=== PATIENT | male | born 1940 | race Caucasian/White ===

== ENCOUNTER 2016-10-01 07:17 | Day surgery (SDC) | payer MEDICARE, MEDICAID ==
[2016-10-01 07:52] VITALS: BMI 27.2
[2016-10-01 08:17] VITALS: RESP 16; TEMP 97.8; O2SAT 98
[2016-10-01] MEDS ORDERED: Lactated Ringer's 500 ML IV ONE (09:12)
[2016-10-01] MEDS ORDERED: Propofol 10 mg/ml Inj (20 ML) ONE ×3 (09:17→09:29)
[2016-10-01 10:19] VITALS: BP 118/73; PULSE 69
== END 2016-10-01 10:36 | disposition home or self-care (01) ==
LOC: C.ENDO 07:17
PROVIDERS: ATTEND Internal Medicine Gastroenterology
DX: Z12.11 Encounter for screening for malignant neoplasm of colon (principal); K57.30 Diverticulosis of large intestine without perforation or abscess without bleeding; K64.8 Other hemorrhoids
CPT/HCPCS: 45378; 88305; J2704; J7120

== ENCOUNTER 2018-04-09 10:43 | Inpatient (IN) | payer MEDICARE, MEDICAID ==
[2018-04-09 10:44] VITALS: BMI 27.2
[2018-04-09] MEDS ORDERED: Iohexol 240 (50 ml) PO STA (10:54)
[2018-04-09] MEDS ORDERED: Sodium Chloride 0.9% 1,000 ML IV ONE (10:54)
--- NOTE | 2018-04-09 10:54 | C.PDOC ---
History Of Present Illness 77 years old male with PMHx of michelle and perium Hernia bought to ED via Trans for complaints of worsening LUQ and LLQ abdominal pain that began 2 weeks ago. Patient describes pain is currently intermittent and constant and got more i ntense today. Patient also reports associated symptoms of epigastric tenderness and new onset nausea today. Patient also states Hx of constipation, and he only takes "Tea" but no improvement. Patient currently states pain is more intense than usual. Denies any other physical complaints. VIA TRANS WORSENING ABD PAIN X 2 WEEKS. LUQ/LLQ PAIN, INTERMIT NOW CONSTANT AND MORE INTENSE TODAY. +EPIG TEND. NEW ONSET NAUSEA TODAY. PS HO CONSTIPATION, ONLY TAKES "TEA" BUT NO IMPROVE. CURRENT PAIN MORE INTENSE THAN USUAL. PSH MICHELLE, PERIUM HERNIA. NO OTHER ASSOC SX EXAM MILD DIST NONTOXIC ABD +LUQ/LQ TEND MILD SOFT NONDIST NO RG REMAINDER NEG Time Seen by Provider: 04/09/18 10:53 Chief Complaint (Nursing): Abdominal Pain History Per: Patient History/Exam Limitations: no limitations Onset/Duration Of Symptoms: Hrs, Intermittent Episodes, Sudden Onset Current Symptoms Are (Timing): Still Present Location Of Pain/Discomfort: LUQ, LLQ Radiation Of Pain To:: None Associated Symptoms: Nausea. denies: Fever, Chills, Vomiting, Diarrhea Exacerbating Factors: None Alleviating Factors: None Last Bowel Movement: Today Past Medical History Reviewed: Historical Data, Nursing Documentation, Vital Signs Vital Signs: Last Vital Signs Temp 98 F 04/09/18 10:47 Pulse 78 04/09/18 10:47 Resp 18 04/09/18 10:47 BP 150/62 04/09/18 10:47 Pulse Ox 98 04/09/18 10:47 - Medical History PMH: Asthma, CAD, HTN, Hypercholesterolemia, Hypothyroidism Denies: Chronic Kidney Disease Surgical History: Cholecystectomy, Coronary Stent Family History: States: No Known Family Hx - Social History Hx Tobacco Use: No Hx Alcohol Use: No Hx Substance Use: No - Immunization History Hx Tetanus Toxoid Vaccination: No Hx Influenza Vaccination: No Hx Pneumococcal Vaccination: No Review Of Systems Constitutional: Negative for: Fever, Chills Gastrointestinal: Positive for: Nausea, Abdominal Pain (LLQ, LUQ). Negative for: Vomiting, Diarrhea Skin: Negative for: Rash Neurological: Negative for: Weakness, Numbness Physical Exam - Physical Exam Appears: Non-toxic, No Acute Distress Skin: Normal Color, Warm, Dry, No Rash Head: Atraumatic Eye(s): bilateral: Normal Inspection, PERRL, EOMI Oral Mucosa: Moist Chest: Symmetrical, No Tenderness Cardiovascular: Rhythm Regular, No Murmur Respiratory: Normal Breath Sounds, No Decreased Breath Sounds, No Rales, No Rhonchi, No Wheezing Gastrointestinal/Abdominal: Soft, Tenderness (Mild LUQ/LQ ), No Distention, No Guarding, No Rebound Extremity: Normal ROM Extremity: Bilateral: Normal Color And Temperature, Normal ROM Pulses: Left Radial: Normal, Right Radial: Normal Neurological/Psych: Oriented x3, Normal Speech Gait: Steady ED Course And Treatment - Laboratory Results Result Diagrams: 04/09/18 10:54 04/09/18 11:21 ECG: Interpreted By Me, Viewed By Fl ECG Rhythm: Sinus Bradycardia (53 bpm) O2 Sat by Pulse Oximetry: 98 (RA) Pulse Ox Interpretation: Normal - Radiology CXR: Interpreted by Fl, Viewed By Fl CXR Interpretation: Yes: No Acute Disease - Other Rad CXR X-Ray: Viewed By Fl, Read By Radiologist Interpretation: Date of service: 04/09/2018. PROCEDURE: CHEST RADIOGRAPH, 1 VIEW. HISTORY: abd pain. COMPARISON: None available. FINDINGS: LUNGS: Erik ar. PLEURA: No pneumothorax or pleural fluid seen. CARDIOVASCULAR: Normal. OSSEOUS STRUCTURES: No significant abnormalities. VISUALIZED UPPER ABDOMEN: Normal. OTHER FINDINGS: None. IMPRESSION: No acute cardiopulmonary disease appreciated. - CT Scan/US Abdomen/Pelvis CT Other Rad Studies (CT/US): Read By Radiologist, Radiology Report Reviewed CT/US Interpretation: Date of service: 04/09/2018. PROCEDURE: CT Abdomen and Pelvis with contrast. HISTORY: abd pain RO OBSTRUCTION. COMPARISON: Abdomen ultrasound 02/21/2013. TECHNIQUE: Following oral and intravenous contrast administration, a CT examination of the abdomen and pelvis performed from the domes of the diaphragms to the symphysis pubis with reformatted datasets provided not only axial but also sagittal and coronal series. Coronal and sa gittal reformats were generated. contrast dose: Visipaque 320, 100. Radiation dose: Total exam DLP = 813.65 mGy-cm. This CT exam was performed using one or more of the following dose reduction techniques: Automated exposure control, adjustment of the mA and/or kV according to patient size, and/or use of iterative reconstruction technique. FINDINGS: LOWER THORAX: Bilateral basilar dependent atelectasis identified. Small hiatal hernia identified. LIVER: Diffusely diminished attenuation of the liver is appreciate compatible with hepatic steatosis. No discrete mass or intrahepatic biliary dilatation appreciable. Liver is upper limits normal size. GALLBLADDER AND BILE DUCTS: Prior cholecystectomy. PANCREAS: Although the pancreas is not enlarged, there is significant peripancreatic reactive change appreciable, compatible with pancreatitis. No pseudocyst or definite pattern to suggest pancreatic necrosis is identified at this time. Proximal CBD is dilated to 8 mm without radiodense choledocholithiasis appreciated. This could be a function of post cholecystectomy affect. Clinically correlate further. No gross ampullary mass identified at this time. SPLEEN: Unremarkable. ADRENALS: Unremarkable. No mass. KIDNEYS AND URETERS: No obstructive uropathy or radiodense urolithiasis bilaterally. 1.2 cm simple cyst exophytic off the lower pole left kidney medially with 2 additional lucencies at the left renal cortex too small to characterize. VASCULATURE: Nonaneurysmal abdominal aortic calcific atherosclerotic changes are identified. BOWEL: Unremarkable. No obstruction. No gross mural thickening. APPENDIX: Normal appendix. PERITONEUM: Unremarkable. No free fluid. No free air. LYMPH NODES: Unremarkable. No enlarged lymph nodes. BLADDER: Unremarkable. REPRODUCTIVE: Mildly enlarged prostate gland identified. BONES: No acute fracture. OTHER FINDINGS: None. IMPRESSION: 1. Findings most compatible with acute subacute pancreatitis. Prior cholecystectomy is appreciated with likely related dilatation of the proximal to mid common bile duct up to 8 mm. No radiodense choledocholithiasis. Consider follow-up MRCP as clinically warranted as a precaution to evaluate common bile duct diameter. 2. Hepatic steatosis. No intrahepatic biliary dil atation. 3. Small left renal cyst identified. 4. Enlarged prostate gland. Progress - Re-Evaluation Re-evaluation Note: 04/09/18 13:43 SP MORPHINE X 2, VSS APPEARS IMPROVED D/W DR HANKINS C/F PMD WILL ADMIT - Data Reviewed Data Reviewed: Lab, Diagnostic imaging, EKG, Old records Medical Decision Making Medical Decision Making: Plan: * Morphine * IV fluids * Zofran * Omnipaque * BG * CT Abdomen/Pelvis * EKG * CXR * Urinalysis Disposition Counseled Patient/Family Regarding: Studies Performed, Diagnosis - Disposition Disposition: HOSPITALIZED Disposition Time: 13:44 Condition: SERIOUS - POA Present On Arrival: None, Poor Glycemic Control - Clinical Impression Clinical Impression: Pancreatitis - Scribe Statement The provider has reviewed the documentation as recorded by the Elisibnichole Iqbal All medical record entries made by the Elisibnichole were at my direction and personally dictated by me. I have reviewed the chart and agree that the record accurately reflects my personal performance of the history, physical exam, medical decision making, and the department course for this patient. I have also personally directed, reviewed, and agree with the discharge instructions and disposition.
[2018-04-09] MEDS ORDERED: Iohexol 240 (50 ml) ONE (11:04)
[2018-04-09 11:16] LABS: BASO % 0.2 % (0.0-2.0); EOS # 0.2 K/uL (0.0-0.7); EOS % 1.9 % (0.0-4.0); HEMOGLOBIN 14.8 g/dL (12.0-18.0); LYMPH # 1.9 K/uL (1.0-4.3); LYMPH % 16.5 % (20.0-40.0); MEAN CELL VOLUME 87.4 fL (80.0-94.0); MEAN CORPUSCULAR HEMOGLOBIN 29.9 pg (27.0-31.0); MEAN CORPUSCULAR HGB CONC 34.2 g/dL (33.0-37.0); MEAN PLATELET VOLUME 8.4 fL (7.2-11.7); MONO % 8.3 % (0.0-10.0); NEUT # 8.5 K/uL (1.8-7.0); NEUT % 73.1 % (50.0-75.0); NRBC % 0.1 % (0.0-2.0); RBC 4.96 Mil/uL (4.40-5.90); RED CELL DISTRIBUTION WIDTH 14.3 % (11.5-14.5); WHITE BLOOD COUNT 11.6 K/uL (4.8-10.8)
[2018-04-09 11:31] LABS: VENOUS BLOOD GAS BASE EXCESS 0.9 mmol/L (0.0-2.0); VENOUS BLOOD GAS PCO2 51 mmHg (40-60); VENOUS BLOOD GAS PO2 19 mm/Hg (30-55); VENOUS BLOOD PH 7.34 (7.32-7.43)
[2018-04-09 11:34] LABS: ALB/GLOB RATIO 1.3 (1.0-2.1); ALBUMIN 4.5 g/dL (3.5-5.0); ALT/SGPT 35 U/L (21-72); AST/SGOT 26 U/L (17-59); BLOOD UREA NITROGEN 27 mg/dL (9-20); CALCIUM 10.2 mg/dl (8.6-10.4); GFR NON-AFRICAN AMERICAN 59
[2018-04-09 11:49] LABS: LIPASE 3901 U/L (23-300)
[2018-04-09] MEDS ORDERED: Iodixanol 320 MG/ML 100 ML BOTTLE IV ONE (12:37)
[2018-04-09 13:01] LABS: URINE BILIRUBIN NEGATIVE (NEGATIVE); URINE BLOOD NEGATIVE (NEGATIVE); URINE CLARITY Clear (Clear); URINE COLOR Yellow (YELLOW); URINE GLUCOSE (UA) NORMAL (Normal); URINE LEUKOCYTE ESTERASE NEG Leu/uL (Negative); URINE PROTEIN 1+ mg/dL (NEGATIVE); URINE UROBILINOGEN NORMAL mg/dL (0.2-1.0)
[2018-04-09] MEDS ORDERED: Morphine 4 MG/ML VIAL ONE (13:14)
--- NOTE | 2018-04-09 13:18 | CT ---
Date of service: 04/09/2018 PROCEDURE: CT Abdomen and Pelvis with contrast HISTORY: abd pain RO OBSTRUCTION COMPARISON: Abdomen ultrasound 02/21/2013. TECHNIQUE: Following oral and intravenous contrast administration, a CT examination of the abdomen and pelvis performed from the domes of the diaphragms to the symphysis pubis with reformatted datasets provided not only axial but also sagittal and coronal series. Coronal and sagittal reformats were generated. contrast dose: Visipaque 320, 100 Radiation dose: Total exam DLP = 813.65 mGy-cm. This CT exam was performed using one or more of the following dose reduction techniques: Automated exposure control, adjustment of the mA and/or kV according to patient size, and/or use of iterative reconstruction technique. FINDINGS: LOWER THORAX: Bilateral basilar dependent atelectasis identified. Small hiatal hernia identified. LIVER: Diffusely diminished attenuation of the liver is appreciate compatible with hepatic steatosis. No discrete mass or intrahepatic biliary dilatation appreciable. Liver is upper limits normal size. GALLBLADDER AND BILE DUCTS: Prior cholecystectomy. PANCREAS: Although the pancreas is not enlarged, there is significant peripancreatic reactive change appreciable, compatible with pancreatitis. No pseudocyst or definite pattern to suggest pancreatic necrosis is identified at this time. Proximal CBD is dilated to 8 mm without radiodense choledocholithiasis appreciated. This could be a function of post cholecystectomy affect. Clinically correlate further. No gross ampullary mass identified at this time. SPLEEN: Unremarkable. ADRENALS: Unremarkable. No mass. KIDNEYS AND URETERS: No obstructive uropathy or radiodense urolithiasis bilaterally. 1.2 cm simple cyst exophytic off the lower pole left kidney medially with 2 additional lucencies at the left renal cortex too small to characterize. VASCULATURE: Nonaneurysmal abdominal aortic calcific atherosclerotic changes are identified. BOWEL: Unremarkable. No obstruction. No gross mural thickening. APPENDIX: Normal appendix. PERITONEUM: Unremarkable. No free fluid. No free air. LYMPH NODES: Unremarkable. No enlarged lymph nodes. BLADDER: Unremarkable. REPRODUCTIVE: Mildly enlarged prostate gland identified. BONES: No acute fracture. OTHER FINDINGS: None. IMPRESSION: 1. Findings most compatible with acute subacute pancreatitis. Prior cholecystectomy is appreciated with likely related dilatation of the proximal to mid common bile duct up to 8 mm. No radiodense choledocholithiasis. Consider follow-up MRCP as clinically warranted as a precaution to evaluate common bile duct diameter. 2. Hepatic steatosis. No intrahepatic biliary dilatation. 3. Small left renal cyst identified. 4. Enlarged prostate gland.
--- NOTE | 2018-04-09 15:38 | CP.PCM.HP ---
<Jazlyn Truong - Last Filed: 04/09/18 15:53> History of Present Illness - History of Present Illness History of Present Illness: Admission H&P HPI: 77 y/o male with PMHx of CAD s/p 3 stents (last 2003), HTN, HLD presents to the ED with epigastric, nonradiating abdominal pain x 15 days. Patient states it was at its worst starting today so he went to the ED. He started to feel nauseous today and vomited his breakfast once in the ED. For the last 15 days, patient has been trying to drink tea to relieve his pain without relief. He has not tried any medications for pain relief. The pain currently is 5/10 while resting supine in bed but can be more worse when he is ambulating. Patient endor ses appetite loss but denies weight loss. Patient also denies chest pain, shortness of breath, fever, chills, sweats, diarrhea. Patient has also been having constipation and last BM was hard stool this morning. Of note, patient's PCM is Dr. Jose Antonio Gibson. The last time he saw him was last summer. He said the appointment went well. He had a screening colonoscopy done a year ago. Patient states there were no significant findings. ROS: as per HPI PMHx: CAD - 3 stents last one in 2003 HTN Hypothyroid Hyperlipidemia herniated lumbar discs PSHx: CAD with 3 stents last one 2003 cholecystectomy in [facility] 2012 Procedures: Upper endoscopy and colonoscopy 2017 - EMR records says he has gastritis and diverticulosis. FHx: Denies FHx of CA, CVA, [place] SocHx: Denies tobacco, EtOH and drug use Home Meds: levothyroxine 100 mcg metoprolol succinate 25 mg plavix 75 mg fenofibrate 160 mg amlodipine 10 mg losartan/HCTZ 100/25 tramadol 50mg a pill for acid reflux - does not recall the name; left it at home Allergies: NKDA Present on Admission - Present on Admission Any Indicators Present on Admission: Yes Review of Systems - Review of Systems Review of Systems: as per HPI Past Patient History - Past Medical History & Family History Past Medical History?: Yes - Past Social History Smoking Status: Never Smoked - CARDIAC Hx Hypercholesterolemia: Yes Hx Hypertension: Yes - PULMONARY Hx Asthma: Yes - NEUROLOGICAL Hx Neurological Disorder: No - HEENT Hx HEENT Problems: No - RENAL Hx Chronic Kidney Disease: No - ENDOCRINE/METABOLIC Hx Hypothyroidism: Yes - HEMATOLOGICAL/ONCOLOGICAL Hx Blood Disorders: No - INTEGUMENTARY Hx Dermatological Problems: No - MUSCULOSKELETAL/RHEUMATOLOGICAL Hx Musculoskeletal Disorders: Yes Hx Back Pain: Yes Hx Osteoarthritis: Yes - GASTROINTESTINAL Hx Gastrointestinal Disorders: No - GENITOURINARY/GYNECOLOGICAL Hx Genitourinary Disorders: No - PSYCHIATRIC Hx Substance Use: No - SURGICAL HISTORY Hx Cholecystectomy: Yes Hx Coronary Stent: Yes - ANESTHESIA Hx Anesthesia: Yes Hx Anesthesia Reactions: No Hx Malignant Hyperthermia: No Meds Allergies/Adverse Reactions: Allergies Allergy/AdvReac Type Severity Reaction Status Date / Time No Known Allergies Allergy Verified 05/30/14 10:08 Physical Exam - Constitutional Appears: Well, No Acute Distress - Head Exam Head Exam: ATRAUMATIC, NORMAL INSPECTION - Eye Exam Eye Exam: EOMI, Normal appearance - ENT Exam ENT Exam: Mucous Membranes Dry - Neck Exam Neck exam: Positive for: Normal Inspection. Negative for: Lymphadenopathy - Respiratory Exam Respiratory Exam: Clear to Auscultation Bilateral, NORMAL BREATHING PATTERN - Cardiovascular Exam Cardiovascular Exam: REGULAR RHYTHM - GI/Abdominal Exam GI & Abdominal Exam: Soft Additional comments: epigastric tenderness to palpation - Extremities Exam Extremities exam: Positive for: normal inspection - Neurological Exam Neurological exam: Alert, Oriented x3 - Psychiatric Exam Psychiatric exam: Normal Affect, Normal Mood - Skin Skin Exam: Dry, Intact, Normal Color, Warm - Additional Findings Additional findings: strong peripheral pulses Results - Vital Signs Recent Vital Signs: Last Vital Signs Temp 97.9 F 04/09/18 13:48 Pulse 57 L 04/09/18 13:48 Resp 16 04/09/18 13:48 BP 149/74 04/09/18 13:48 Pulse Ox 98 04/09/18 14:05 - Labs Result Diagrams: 04/09/18 10:54 04/09/18 11:21 Labs: Laboratory Results - last 24 hr 04/09/18 04/09/18 04/09/18 10:54 11:20 11:21 WBC 11.6 H D RBC 4.96 Hgb 14.8 D Hct 43.4 MCV 87.4 MCH 29.9 MCHC 34.2 RDW 14.3 Plt Count 347 D MPV 8.4 Neut % (Auto) 73.1 Lymph % (Auto) 16.5 L [place] % (Auto) 8.3 Eos % (Auto) 1.9 Baso % (Auto) 0.2 Neut # (Auto) 8.5 H Lymph # (Auto) 1.9 [place] # (Auto) 1.0 H Eos # (Auto) 0.2 Baso # (Auto) 0.0 pO2 19 L VBG pH 7.34 VBG pCO2 51 VBG HCO3 23.7 VBG Total CO2 29.1 H VBG O2 Sat (Calc) 28.7 L VBG Base Excess 0.9 VBG Potassium 3.3 L Sodium 138.0 143 Chloride 106.0 101 Glucose 152 H Lactate 1.6 Potassium 3.5 L Carbon Dioxide 28 Anion Gap 17 BUN 27 H Creatinine 1.2 Est GFR ( Amer) > 60 Est GFR (Non-Af Amer) 59 Random Glucose 159 H Calcium 10.2 Total Bilirubin 0.9 AST 26 ALT 35 Alkaline Phosphatase 39 Total Protein 8.1 Albumin 4.5 Globulin 3.6 Albumin/Globulin Ratio 1.3 Lipase 3901 H Venous Blood Potassium 3.3 L Urine Color Urine Clarity Urine pH Ur Specific [place] Urine Protein Urine Glucose (UA) Urine Ketones Urine Blood Urine Nitrate Urine Bilirubin Urine Urobilinogen Ur Leukocyte Esterase Urine WBC (Auto) Urine RBC (Auto) Hyaline Casts 04/09/18 12:40 WBC RBC Hgb Hct MCV MCH MCHC RDW Plt Count MPV Neut % (Auto) Lymph % (Auto) [place] % (Auto) Eos % (Auto) Baso % (Auto) Neut # (Auto) Lymph # (Auto) [place] # (Auto) Eos # (Auto) Baso # (Auto) pO2 VBG pH VBG pCO2 VBG HCO3 VBG Total CO2 VBG O2 Sat (Calc) VBG Base Excess VBG Potassium Sodium Chloride Glucose Lactate Potassium Carbon Dioxide Anion Gap BUN Creatinine Est GFR ( Amer) Est GFR (Non-Af Amer) Random Glucose Calcium Total Bilirubin AST ALT Alkaline Phosphatase Total Protein Albumin Globulin Albumin/Globulin Ratio Lipase Venous Blood Potassium Urine Color Yellow Urine Clarity Clear Urine pH 6.0 Ur Specific [place] 1.013 Urine Protein 1+ H Urine Glucose (UA) Normal Urine Ketones Negative Urine Blood Negative Urine Nitrate Negative Urine Bilirubin Negative Urine Urobilinogen Normal Ur Leukocyte Esterase Neg Urine WBC (Auto) < 1 Urine RBC (Auto) < 1 Hyaline Casts 3-5 H Assessment & Plan - Assessment and Plan (Free Text) Assessment: 77 y/o male with PMHx of CAD s/p 3 stents (last 2003), HTN, HLD presents to the ED with epigastric, nonradiating abdominal pain x 15 days. In the ED found to have elevated lipase 3901. Admitted for acute pancreatitis. Acute pancreatitis -Patient without a gallbladder and denies EtOH. Causes could be obstruction, less likely infectious (afebrile, leukocytosis slight - likely reactive). CT s can suggests consideration of MRCP showing bile duct dilation and subacute pancreatitis. -consult GI (Dr. Doyle - performed his upper endo and colonoscopy) for further recs and possible procedure -IVF NS 0.9% with K at 150 mL/h -morphine PRN -zofran PRN -NPO -lipid panel and A1c -repeat lipase in 2 days -CEA to r/o malignancy CAD s/p 3 stents -last stent 2003 -hold plavix as possible need for GI to bx in procedure HTN -hold HTN home meds -monitor bp and resume meds as needed Hypothyroid -continue with home synthroid 100 mcg DVT ppx: lovenox 40 mg sq GI ppx: protonix 40 mg IV Code: FULL case discussed with Dr. Feliciano Truong, DO PGY-1 <Caren Wiggins - Last Filed: 04/09/18 16:41> Results - Vital Signs Recent Vital Signs: Last Vital Signs Temp 97.9 F 04/09/18 13:48 Pulse 57 L 04/09/18 13:48 Resp 16 04/09/18 13:48 BP 149/74 04/09/18 13:48 Pulse Ox 98 04/09/18 14:05 - Labs Result Diagrams: 04/09/18 10:54 04/09/18 11:21 Labs: Laboratory Results - last 24 hr 04/09/18 04/09/18 04/09/18 10:54 11:20 11:21 WBC 11.6 H D RBC 4.96 Hgb 14.8 D Hct 43.4 MCV 87.4 MCH 29.9 MCHC 34.2 RDW 14.3 Plt Count 347 D MPV 8.4 Neut % (Auto) 73.1 Lymph % (Auto) 16.5 L [place] % (Auto) 8.3 Eos % (Auto) 1.9 Baso % (Auto) 0.2 Neut # (Auto) 8.5 H Lymph # (Auto) 1.9 [place] # (Auto) 1.0 H Eos # (Auto) 0.2 Baso # (Auto) 0.0 pO2 19 L VBG pH 7.34 VBG pCO2 51 VBG HCO3 23.7 VBG Total CO2 29.1 H VBG O2 Sat (Calc) 28.7 L VBG Base Excess 0.9 VBG Potassium 3.3 L Sodium 138.0 143 Chloride 106.0 101 Glucose 152 H Lactate 1.6 Potassium 3.5 L Carbon Dioxide 28 Anion Gap 17 BUN 27 H Creatinine 1.2 Est GFR ( Amer) > 60 Est GFR (Non-Af Amer) 59 Random Glucose 159 H Calcium 10.2 Total Bilirubin 0.9 AST 26 ALT 35 Alkaline Phosphatase 39 Total Protein 8.1 Albumin 4.5 Globulin 3.6 Albumin/Globulin Ratio 1.3 Lipase 3901 H Venous Blood Potassium 3.3 L Urine Color Urine Clarity Urine pH Ur Specific [place] Urine Protein Urine Glucose (UA) Urine Ketones Urine Blood Urine Nitrate Urine Bilirubin Urine Urobilinogen Ur Leukocyte Esterase Urine WBC (Auto) Urine RBC (Auto) Hyaline Casts 04/09/18 12:40 WBC RBC Hgb Hct MCV MCH MCHC RDW Plt Count MPV Neut % (Auto) Lymph % (Auto) [place] % (Auto) Eos % (Auto) Baso % (Auto) Neut # (Auto) Lymph # (Auto) [place] # (Auto) Eos # (Auto) Baso # (Auto) pO2 VBG pH VBG pCO2 VBG HCO3 VBG Total CO2 VBG O2 Sat (Calc) VBG Base Excess VBG Potassium Sodium Chloride Glucose Lactate Potassium Carbon Dioxide Anion Gap BUN Creatinine Est GFR ( Amer) Est GFR (Non-Af Amer) Random Glucose Calcium Total Bilirubin AST ALT Alkaline Phosphatase Total Protein Albumin Globulin Albumin/Globulin Ratio Lipase Venous Blood Potassium Urine Color Yellow Urine Clarity Clear Urine pH 6.0 Ur Specific [place] 1.013 Urine Protein 1+ H Urine Glucose (UA) Normal Urine Ketones Negative Urine Blood Negative Urine Nitrate Negative Urine Bilirubin Negative Urine Urobilinogen Normal Ur Leukocyte Esterase Neg Urine WBC (Auto) < 1 Urine RBC (Auto) < 1 Hyaline Casts 3-5 H Attending/Attestation - Attestation I have personally seen and examined this patient.: Yes I have fully participated in the care of the patient.: Yes I have reviewed all pertinent clinical information: Yes Notes (Text): Seen and examined by me . Patient is in severe epigastric pain CT shows acute pancreatititis and cano,has common bile duct dilatations,he has high lipase History of cholecystectomy. CAD and Stent in 2003 Assessment and the plan discussed with the resident. I agree with the documentation d/w and daughter in law at bedside
--- NOTE | 2018-04-09 16:03 | RAD ---
Date of service: 04/09/2018 PROCEDURE: CHEST RADIOGRAPH, 1 VIEW HISTORY: abd pain COMPARISON: None available. FINDINGS: LUNGS: Clear. PLEURA: No pneumothorax or pleural fluid seen. CARDIOVASCULAR: Normal. OSSEOUS STRUCTURES: No significant abnormalities. VISUALIZED UPPER ABDOMEN: Normal. OTHER FINDINGS: None. IMPRESSION: No acute cardiopulmonary disease appreciated.
[2018-04-09 16:30] VITALS: RESP 20
[2018-04-10] MEDS: Levothyroxine 100 MCG TAB PO SCH (05:31)
[2018-04-10] MEDS: Enoxaparin 40 mg Syringe SC SCH (09:15)
[2018-04-10 10:00] LABS: ALB/GLOB RATIO 1.2 (1.0-2.1); ALT/SGPT 27 U/L (21-72); AST/SGOT 24 U/L (17-59); BLOOD UREA NITROGEN 15 mg/dL (9-20); CALCIUM 9.2 mg/dl (8.6-10.4); GFR NON-AFRICAN AMERICAN > 60; INR 1.2; PROTHROMBIN TIME 12.6 SECONDS (9.7-12.2)
[2018-04-10] MEDS ORDERED: Dextrose 5%/Lactated Ringer's 1,000 ML IV SCH ×2 (15:15→20:15)
--- NOTE | 2018-04-10 15:27 | CP.PCM.CON ---
<Kendra Man - Last Filed: 04/10/18 15:30> History of Present Illness - History of Present Illness History of Present Illness: GI Fellow PGY5 Consult Note This is a 77 y/o male with PMHx of CAD s/p 3 stents (last 2003), HTN, HLD presents to the ED with epigastric, nonradiating abdominal pain for two weeks. Patient states that is got worse last night so he went to the ED. He is having nausea and vomited in the ED. The pain currently is 5/10 while resting supine in bed but can be worse when he is ambulating. Patient endorses appetite loss but denies weight loss. No prior episode of pancreatitis. Pt and his at bedside, deny any alcohol use. Pt was found to have elevated lipase and CT imaging with acute pancreatitis. Pt denies any recent change in medications. ROS: A 12pt ROS was negative except as above. PMHx: As stated in HPI PSHx: CAD with 3 stents last one 2003, cholecystectomy in [facility] 2012 Procedures: Upper endoscopy and colonoscopy 09/2016 - nonerosive esophagitis, gastritis, lymphangiectasia duodenum, neg HP, internal hemorrhoids, diverticulosis. Past Patient History - Past Medical History & Family History Past Medical History?: Yes - Past Social History Smoking Status: Never Smoked - CARDIAC Hx Cardiac Disorders: Yes Hx Hypercholesterolemia: Yes Hx Hypertension: Yes - PULMONARY Hx Asthma: Yes - NEUROLOGICAL Hx Neurological Disorder: No - HEENT Hx HEENT Problems: No - RENAL Hx Chronic Kidney Disease: No - ENDOCRINE/METABOLIC Hx Endocrine Disorders: Yes Hx Hypothyroidism: Yes - HEMATOLOGICAL/ONCOLOGICAL Hx Blood Disorders: No - INTEGUMENTARY Hx Dermatological Problems: No - MUSCULOSKELETAL/RHEUMATOLOGICAL Hx Musculoskeletal Disorders: Yes Hx Back Pain: Yes Hx Falls: No Hx Osteoarthritis: Yes - GASTROINTESTINAL Hx Gastrointestinal Disorders: Yes Hx Gall Bladder Disease: Yes Hx Pancreatitis: Yes - GENITOURINARY/GYNECOLOGICAL Hx Genitourinary Disorders: No - PSYCHIATRIC Hx Psychophysiologic Disorder: No Hx Substance Use: No - SURGICAL HISTORY Hx Surgeries: Yes Hx Cholecystectomy: Yes Hx Coronary Stent: Yes - ANESTHESIA Hx Anesthesia: Yes Hx Anesthesia Reactions: No Hx Malignant Hyperthermia: No Meds Allergies/Adverse Reactions: Allergies Allergy/AdvReac Type Severity Reaction Status Date / Time No Known Allergies Allergy Verified 05/30/14 10:08 - Medications Medications: Current Medications Enoxaparin Sodium (Lovenox) 40 mg SC DAILY [facility] Last Admin: 04/10/18 09:15 Dose: 40 mg Dextrose/Lactated Ringer's (Dextrose 5%/Lactated Ringer's) 1,000 mls @ 200 mls/hr IV .Q5H [facility] Dextrose/Lactated Ringer's (Dextrose 5%/Lactated Ringer's) 1,000 mls @ 150 mls/hr IV .Q6H40M [facility] Influenza Virus Vaccine (Fluzone Quad [id number]) 60 mcg IM .ONCE ONE Stop: 04/12/18 10:01 Levothyroxine Sodium (Synthroid) 100 mcg PO DAILY@0630 [facility] Last Admin: 04/10/18 05:31 Dose: 100 mcg Morphine Sulfate (Morphine) 2 mg IVP Q4 PRN PRN Reason: Pain, moderate (4-7) Last Admin: 04/10/18 14:23 Dose: 2 mg Ondansetron HCl (Zofran Inj) 4 mg IVP Q4H PRN PRN Reason: Nausea/Vomiting Pantoprazole Sodium (Protonix Inj) 40 mg IVP DAILY [facility] Last Admin: 04/10/18 09:14 Dose: 40 mg Pneumococcal Polyvalent Vaccine (Pneumovax 23 Vaccine) 0.5 ml IM .ONCE ONE Stop: 04/12/18 10:01 Physical Exam - Constitutional Appears: Non-toxic, No Acute Distress - Head Exam Head Exam: ATRAUMATIC, NORMAL INSPECTION, NORMOCEPHALIC - Eye Exam Eye Exam: EOMI, Normal appearance, PERRL Pupil Exam: PERRL - ENT Exam ENT Exam: Mucous Membranes Moist, Normal Exam - Neck Exam Neck exam: Positive for: Normal Inspection - Respiratory Exam Respiratory Exam: Clear to Auscultation Bilateral, NORMAL BREATHING PATTERN - Cardiovascular Exam Cardiovascular Exam: REGULAR RHYTHM, RRR, +S1, +S2 - GI/Abdominal Exam GI & Abdominal Exam: Guarding, Normal Bowel Sounds, Soft, Tenderness. absent: Distended, Firm, Organomegaly - Rectal Exam Rectal Exam: Deferred - Extremities Exam Extremities exam: Positive for: full ROM, normal inspection - Back Exam Back exam: NORMAL INSPECTION - Neurological Exam Neurological exam: Alert, Oriented x3 - Psychiatric Exam Psychiatric exam: Normal Affect, Normal Mood - Skin Skin Exam: Dry, Intact, Normal Color, Warm Results - Vital Signs Recent Vital Signs: Last Vital Signs Temp 98.6 F 04/10/18 07:49 Pulse 61 04/10/18 07:49 Resp 20 04/10/18 07:49 BP 156/69 H 04/10/18 07:49 Pulse Ox 96 04/10/18 07:49 - Labs Result Diagrams: 04/09/18 10:54 04/10/18 09:37 Labs: Laboratory Results - last 24 hr 04/10/18 04/10/18 04/10/18 09:37 09:37 09:37 PT 12.6 H INR 1.2 Sodium 139 Potassium 3.8 Chloride 104 Carbon Dioxide 25 Anion Gap 13 BUN 15 Creatinine 0.8 Est GFR ( Amer) > 60 Est GFR (Non-Af Amer) > 60 Random Glucose 104 Hemoglobin A1c 5.7 Calcium 9.2 Phosphorus 2.4 L Magnesium 1.9 Total Bilirubin 1.0 AST 24 ALT 27 Alkaline Phosphatase 44 Total Protein 7.2 Albumin 4.0 Globulin 3.3 Albumin/Globulin Ratio 1.2 Carcinoembryonic Ag 0.8 Assessment & Plan - Assessment and Plan (Free Text) Assessment: 77 y/o male with PMHx of CAD s/p 3 stents (last 2003), HTN, HLD presents to the ED with epigastric, nonradiating abdominal pain x 15 days. In the ED found to have elevated lipase 3901. Admitted for acute pancreatitis. 1. Acute pancreatitis Plan: -Continue supportive care with pain control and anti-emetics -Elevated lipase, normal LFTs -s/p cholecystectomy, no signs of obstruction -CT imaging reviewed with acute pancreatitis -IVF LR at 150cc/hr -BUN/Hct improving -Advance to clear liquid diet -No prior etog use -Order lipid profile -IgG4 levels -Will continue to follow closely <Viet Alaniz - Last Filed: 04/10/18 15:54> Meds - Medications Medications: Current Medications Enoxaparin Sodium (Lovenox) 40 mg SC DAILY [facility] Last Admin: 04/10/18 09:15 Dose: 40 mg Dextrose/Lactated Ringer's (Dextrose 5%/Lactated Ringer's) 1,000 mls @ 200 mls/hr IV .Q5H [facility] Dextrose/Lactated Ringer's (Dextrose 5%/Lactated Ringer's) 1,000 mls @ 150 mls/hr IV .Q6H40M [facility] Influenza Virus Vaccine (Fluzone Quad [id number]) 60 mcg IM .ONCE ONE Stop: 04/12/18 10:01 Levothyroxine Sodium (Synthroid) 100 mcg PO DAILY@0630 [facility] Last Admin: 04/10/18 05:31 Dose: 100 mcg Morphine Sulfate (Morphine) 2 mg IVP Q4 PRN PRN Reason: Pain, moderate (4-7) Last Admin: 04/10/18 14:23 Dose: 2 mg Ondansetron HCl (Zofran Inj) 4 mg IVP Q4H PRN PRN Reason: Nausea/Vomiting Pantoprazole Sodium (Protonix Inj) 40 mg IVP DAILY [facility] Last Admin: 04/10/18 09:14 Dose: 40 mg Pneumococcal Polyvalent Vaccine (Pneumovax 23 Vaccine) 0.5 ml IM .ONCE ONE Stop: 04/12/18 10:01 Results - Vital Signs Recent Vital Signs: Last Vital Signs Temp 98.6 F 04/10/18 07:49 Pulse 61 04/10/18 07:49 Resp 20 04/10/18 07:49 BP 156/69 H 04/10/18 07:49 Pulse Ox 96 04/10/18 07:49 - Labs Result Diagrams: 04/09/18 10:54 04/10/18 09:37 Labs: Laboratory Results - last 24 hr 04/10/18 04/10/18 04/10/18 09:37 09:37 09:37 PT 12.6 H INR 1.2 Sodium 139 Potassium 3.8 Chloride 104 Carbon Dioxide 25 Anion Gap 13 BUN 15 Creatinine 0.8 Est GFR ( Amer) > 60 Est GFR (Non-Af Amer) > 60 Random Glucose 104 Hemoglobin A1c 5.7 Calcium 9.2 Phosphorus 2.4 L Magnesium 1.9 Total Bilirubin 1.0 AST 24 ALT 27 Alkaline Phosphatase 44 Total Protein 7.2 Albumin 4.0 Globulin 3.3 Albumin/Globulin Ratio 1.2 Carcinoembryonic Ag 0.8 Attending/Attestation - Attestation I have personally seen and examined this patient.: Yes I have fully participated in the care of the patient.: Yes I have reviewed all pertinent clinical information: Yes Notes (Text): 04/10/18 15:51 The pt was interviewed and examined. Family at bedside helped with transaction. Findings, assessment and recommendations discussed with Dr. Corado and reflected above. Recommend MRI/MRCP with and w/o contrast - discussed with the patient, w ho agreed to undergo the study
[2018-04-10] MEDS ORDERED: Lactated Ringer's 1,000 ML IV SCH (16:00)
--- NOTE | 2018-04-10 20:45 | CP.PCM.PN ---
Subjective - Date & Time of Evaluation Date of Evaluation: 04/10/18 Time of Evaluation: 16:00 - Subjective Subjective: c/o epigastric pain Objective - Vital Signs/Intake and Output Vital Signs (last 24 hours): Temp Pulse Resp BP Pulse Ox 98.4 F 68 20 157/67 H 94 L 04/10/18 15:01 04/10/18 15:01 04/10/18 15:01 04/10/18 15:01 04/10/18 16:04 Intake and Output: 04/10/18 04/11/18 18:59 06:59 Intake Total 1000 Balance 1000 - Medications Medications: Current Medications Enoxaparin Sodium (Lovenox) 40 mg SC DAILY [facility] Last Admin: 04/10/18 09:15 Dose: 40 mg Lactated Ringer's (Lactated Ringer's) 1,000 mls @ 200 mls/hr IV .Q5H [facility] Last Admin: 04/10/18 16:05 Dose: 200 mls/hr Lactated Ringer's (Lactated Ringer's) 1,000 mls @ 150 mls/hr IV .Q6H40M [facility] Influenza Virus Vaccine (Fluzone Quad [id number]) 60 mcg IM .ONCE ONE Stop: 04/12/18 10:01 Levothyroxine Sodium (Synthroid) 100 mcg PO DAILY@0630 [facility] Last Admin: 04/10/18 05:31 Dose: 100 mcg Morphine Sulfate (Morphine) 2 mg IVP Q4 PRN PRN Reason: Pain, moderate (4-7) Last Admin: 04/10/18 14:23 Dose: 2 mg Ondansetron HCl (Zofran Inj) 4 mg IVP Q4H PRN PRN Reason: Nausea/Vomiting Pantoprazole Sodium (Protonix Inj) 40 mg IVP DAILY [facility] Last Admin: 04/10/18 09:14 Dose: 40 mg Pneumococcal Polyvalent Vaccine (Pneumovax 23 Vaccine) 0.5 ml IM .ONCE ONE Stop: 04/12/18 10:01 - Labs Labs: 04/09/18 10:54 04/10/18 09:37 PT 12.6 SECONDS (9.7-12.2) H 04/10/18 09:37 INR 1.2 04/10/18 09:37 - Constitutional Appears: Non-toxic - Head Exam Head Exam: NORMAL INSPECTION - Eye Exam Eye Exam: Normal appearance - Neck Exam Neck Exam: Full ROM - Respiratory Exam Respiratory Exam: Clear to Ausculation Bilateral, Wheezes - Cardiovascular Exam Cardiovascular Exam: REGULAR RHYTHM - GI/Abdominal Exam GI & Abdominal Exam: Soft, Tenderness (epigastric), Normal Bowel Sounds - Extremities Exam Extremities Exam: Full ROM - Back Exam Back Exam: NORMAL INSPECTION - Neurological Exam Neurological Exam: Awake, Oriented x3 - Psychiatric Exam Psychiatric exam: Normal Mood - Skin Skin Exam: Dry Assessment and Plan - Assessment and Plan (Free Text) Plan: Acute pancreatitis -Patient without a gallbladder and denies EtOH. Causes could be obstruction, less likely infectious (afebrile, leukocytosis slight - likely reactive). CT scan suggests consideration of MRCP showing bile duct dilation and subacute pancreatitis. -consult GI (Dr. Doyle - performed his upper endo and colonoscopy) for further recs and possible procedure d/w GI fellow,recommend increase fluids -morphine PRN -zofran PRN clear liquids CAD s/p 3 stents -last stent 2003 -hold plavix as possible need for GI to bx in procedure HTN -hold HTN home meds -monitor bp and resume meds as needed Hypothyroid -continue with home synthroid 100 mcg DVT ppx: lovenox 40 mg sq GI ppx: protonix 40 mg IV Code: FULL
[2018-04-10] MEDS: Lactated Ringer's 1,000 ML IV SCH (21:25)
[2018-04-11] MEDS: Lactated Ringer's 1,000 ML IV SCH ×3 (03:30→17:29)
[2018-04-11] MEDS: Levothyroxine 100 MCG TAB PO SCH (05:45)
[2018-04-11 07:24] LABS: LDL CHOLESTEROL 97 mg/dL (0-129)
[2018-04-11 07:28] LABS: ALB/GLOB RATIO 1.1 (1.0-2.1); ALBUMIN 3.6 g/dL (3.5-5.0); ALT/SGPT 19 U/L (21-72); AST/SGOT 19 U/L (17-59); BLOOD UREA NITROGEN 11 mg/dL (9-20); GFR NON-AFRICAN AMERICAN > 60; HDL CHOLESTEROL 28 mg/dL (30-70)
[2018-04-11 07:39] LABS: LIPASE 2264 U/L (23-300)
--- NOTE | 2018-04-11 08:32 | CP.PCM.PN ---
<Seferino Barry - Last Filed: 04/11/18 09:31> Subjective - Date & Time of Evaluation Date of Evaluation: 04/11/18 Time of Evaluation: 06:45 - Subjective Subjective: PGY6 GI Fellow Progress Note Patient seen and examined bedside this morning. The patient states that he continues to have epigastric pain, though improved from prior. Denies any nausea, vomiting and is tolerating liquid diet though continues to have little appetite. No bowel movements since Wednesday. 12 system ROS performed and negative except where stated. Objective - Vital Signs/Intake and Output Vital Signs (last 24 hours): Temp Pulse Resp BP Pulse Ox 98.1 F 68 20 145/78 95 04/10/18 23:23 04/10/18 23:23 04/10/18 23:23 04/10/18 23:23 04/10/18 23:23 Intake and Output: 04/11/18 04/11/18 06:59 18:59 Intake Total 2980 Output Total 700 Balance 2280 - Medications Medications: Current Medications Enoxaparin Sodium (Lovenox) 40 mg SC DAILY [facility] Last Admin: 04/10/18 09:15 Dose: 40 mg Lactated Ringer's (Lactated Ringer's) 1,000 mls @ 150 mls/hr IV .Q6H40M [facility] Last Admin: 04/11/18 03:30 Dose: 150 mls/hr Influenza Virus Vaccine (Fluzone Quad [id number]) 60 mcg IM .ONCE ONE Stop: 04/12/18 10:01 Levothyroxine Sodium (Synthroid) 100 mcg PO DAILY@0630 [facility] Last Admin: 04/11/18 05:45 Dose: 100 mcg Morphine Sulfate (Morphine) 2 mg IVP Q4 PRN PRN Reason: Pain, moderate (4-7) Last Admin: 04/10/18 14:23 Dose: 2 mg Ondansetron HCl (Zofran Inj) 4 mg IVP Q4H PRN PRN Reason: Nausea/Vomiting Pantoprazole Sodium (Protonix Inj) 40 mg IVP DAILY [facility] Last Admin: 04/10/18 09:14 Dose: 40 mg Pneumococcal Polyvalent Vaccine (Pneumovax 23 Vaccine) 0.5 ml IM .ONCE ONE Stop: 04/12/18 10:01 - Labs Labs: 04/09/18 10:54 04/11/18 06:48 PT 12.6 SECONDS (9.7-12.2) H 04/10/18 09:37 INR 1.2 04/10/18 09:37 - Constitutional Appears: Non-toxic, No Acute Distress - Eye Exam Eye Exam: EOMI, PERRL - ENT Exam ENT Exam: Mucous Membranes Moist - Respiratory Exam Respiratory Exam: Clear to Ausculation Bilateral. absent: Rales, Rhonchi, Wheezes - Cardiovascular Exam Cardiovascular Exam: RRR, +S1, +S2 - GI/Abdominal Exam GI & Abdominal Exam: Soft, Tenderness (epigastric), Normal Bowel Sounds. absent: Distended, Firm, Guarding, Rigid, Organomegaly - Extremities Exam Extremities Exam: Normal Inspection. absent: Pedal Edema - Neurological Exam Neurological Exam: Alert, Awake, Oriented x3 - Psychiatric Exam Psychiatric exam: Normal Affect, Normal Mood - Skin Skin Exam: Dry, Warm Assessment and Plan - Assessment and Plan (Free Text) Assessment: Patient is a 77yo male with PMHx significant for CAD, HTN and hyperlipidemia who presented with progressively worsening epigastric abdominal pain. -Acute pancreatitis Plan: -Patient admits to ongoing, though improved pain -Continue with IVF LF@150cc/hr until fully tolerating PO -Advance diet to low fat/low fiber - reevaluate symptoms after meal -Etiology unclear at this time - Denies EtOH use, h/o cholecystectomy, TGs 217 today (possibly elevated prior to IV hydration therapy); suspect drug induced as patient is using PPI and HCTZ -Would discontinue these agents -IgG4 pending, R/O autoimmune pancreatitis -OK with D/C from GI standpoint with outpatient F/U if tolerating diet <London Doyle - Last Filed: 04/11/18 11:05> Objective - Vital Signs/Intake and Output Vital Signs (last 24 hours): Temp Pulse Resp BP Pulse Ox 100 F H 75 20 142/72 95 04/11/18 08:43 04/11/18 08:43 04/11/18 08:43 04/11/18 08:43 04/11/18 08:43 Intake and Output: 04/11/18 04/11/18 06:59 18:59 Intake Total 2980 Output Total 700 Balance 2280 - Medications Medications: Current Medications Enoxaparin Sodium (Lovenox) 40 mg SC DAILY [facility] Last Admin: 04/11/18 10:52 Dose: 40 mg Lactated Ringer's (Lactated Ringer's) 1,000 mls @ 150 mls/hr IV .Q6H40M [facility] Last Admin: 04/11/18 10:29 Dose: 150 mls/hr Influenza Virus Vaccine (Fluzone Quad [id number]) 60 mcg IM .ONCE ONE Stop: 04/12/18 10:01 Levothyroxine Sodium (Synthroid) 100 mcg PO DAILY@0630 [facility] Last Admin: 04/11/18 05:45 Dose: 100 mcg Morphine Sulfate (Morphine) 2 mg IVP Q4 PRN PRN Reason: Pain, moderate (4-7) Last Admin: 04/10/18 14:23 Dose: 2 mg Ondansetron HCl (Zofran Inj) 4 mg IVP Q4H PRN PRN Reason: Nausea/Vomiting Pantoprazole Sodium (Protonix Inj) 40 mg IVP DAILY [facility] Last Admin: 04/11/18 10:53 Dose: 40 mg Pneumococcal Polyvalent Vaccine (Pneumovax 23 Vaccine) 0.5 ml IM .ONCE ONE Stop: 04/12/18 10:01 - Labs Labs: 04/09/18 10:54 04/11/18 06:48 PT 12.6 SECONDS (9.7-12.2) H 04/10/18 09:37 INR 1.2 04/10/18 09:37 Attending/Attestation - Attestation I have personally seen and examined this patient.: Yes I have fully participated in the care of the patient.: Yes I have reviewed all pertinent clinical information, including history, physical exam and plan: Yes Notes (Text): 04/11/18 11:03 I have seen and examined patient with GI fellow. No acute events overnight, he is seen resting comfortably in bed. He continues to endorse mild epigastric abdominal pain but improved compared to prior. He denies nausea, vomiting, fever/chills. Tolerating PO liquids without difficulty. CAD HTN Hyperlipidemia Abdominal pain - acute pancreatitis, improved - Etiology for pancreatitis unclear, though could be medication related (HCTZ or PPI). Would suggest holding medication for time being and continued outpatient follow up. - Advance diet to low fat as tolerated - Follow up IGG4 levels - If patient tolerating PO diet, from GI standpoint can likely be discharged home with subsequent outpatient follow up. No further planned GI interventions, will sign off case. Please reconsult as necessary, thank you.
[2018-04-11] MEDS ORDERED: Potassium Chloride 20 mEq ER Tab PO STA (09:17)
[2018-04-11] MEDS: Enoxaparin 40 mg Syringe SC SCH (10:52)
--- NOTE | 2018-04-11 12:53 | CARD ---
APPROVED REPORT Date of service: 04/09/2018 EKG Measurement Heart [id number] <Conclusion> Sinus bradycardia with premature supraventricular complexes Left axis deviation Moderate voltage criteria for LVH, may be normal variant Abnormal ECG
--- NOTE | 2018-04-11 13:50 | CP.PCM.PN ---
Subjective - Date & Time of Evaluation Date of Evaluation: 04/11/18 Time of Evaluation: 16:59 - Subjective Subjective: PGY-[address] Sierra Patient seen and examined at bedside. No acute events overnight. Patient was tolerating liquid diet and wanted to be discharged, so diet advanced to GI soft for lunch. However, patient did not tolerate GI soft diet for lunch- was complaining of abdominal pressure and says he does not feel comfortable being discharged home today. Will Change back to liquid diet for now, and will continue reevaluate and advance as tolerated. Objective - Vital Signs/Intake and Output Vital Signs (last 24 hours): Temp Pulse Resp BP Pulse Ox 100 F H 75 20 142/72 95 04/11/18 08:43 04/11/18 08:43 04/11/18 08:43 04/11/18 08:43 04/11/18 08:43 Intake and Output: 04/11/18 04/11/18 06:59 18:59 Intake Total 2980 Output Total 700 Balance 2280 - Medications Medications: Current Medications Enoxaparin Sodium (Lovenox) 40 mg SC DAILY [facility] Last Admin: 04/11/18 10:52 Dose: 40 mg Lactated Ringer's (Lactated Ringer's) 1,000 mls @ 150 mls/hr IV .Q6H40M [facility] Last Admin: 04/11/18 10:29 Dose: 150 mls/hr Influenza Virus Vaccine (Fluzone Quad [id number]) 60 mcg IM .ONCE ONE Stop: 04/12/18 10:01 Levothyroxine Sodium (Synthroid) 100 mcg PO DAILY@0630 [facility] Last Admin: 04/11/18 05:45 Dose: 100 mcg Morphine Sulfate (Morphine) 2 mg IVP Q4 PRN PRN Reason: Pain, moderate (4-7) Last Admin: 04/10/18 14:23 Dose: 2 mg Ondansetron HCl (Zofran Inj) 4 mg IVP Q4H PRN PRN Reason: Nausea/Vomiting Pantoprazole Sodium (Protonix Inj) 40 mg IVP DAILY [facility] Last Admin: 04/11/18 10:53 Dose: 40 mg Pneumococcal Polyvalent Vaccine (Pneumovax 23 Vaccine) 0.5 ml IM .ONCE ONE Stop: 04/12/18 10:01 - Labs Labs: 04/09/18 10:54 04/11/18 06:48 PT 12.6 SECONDS (9.7-12.2) H 04/10/18 09:37 INR 1.2 04/10/18 09:37 - Constitutional Appears: Well, Non-toxic, No Acute Distress - Head Exam Head Exam: ATRAUMATIC, NORMAL INSPECTION - Eye Exam Eye Exam: EOMI, Normal appearance - ENT Exam ENT Exam: Mucous Membranes Moist - Respiratory Exam Respiratory Exam: Clear to Ausculation Bilateral, NORMAL BREATHING PATTERN. absent: Rales, Rhonchi, Wheezes - Cardiovascular Exam Cardiovascular Exam: RRR, +S1, +S2. absent: Murmur - GI/Abdominal Exam GI & Abdominal Exam: Soft, Tenderness (Mild epigastric tenderness on palpation), Normal Bowel Sounds - Extremities Exam Extremities Exam: Normal Inspection. absent: Pedal Edema, Tenderness - Neurological Exam Neurological Exam: Alert, Awake, CN II-XII Intact, Oriented x3 - Psychiatric Exam Psychiatric exam: Normal Affect, Normal Mood - Skin Skin Exam: Dry, Intact, Normal Color, Warm Assessment and Plan - Assessment and Plan (Free Text) Assessment: 77 y/o male with PMHx of CAD s/p 3 stents (last 2003), HTN, HLD presents to the ED with epigastric, nonradiating abdominal pain x 15 days. In the ED found to have elevated lipase 3901. Admitted for acute pancreatitis. Acute pancreatitis -Patient without a gallbladder and denies EtOH. Causes could be obstruction, less likely infectious (afebrile, leukocytosis slight - likely reactive). CT scan suggests consideration of MRCP showing bile duct dilation and subacute pancreatitis. -consult GI (Dr. Doyle - performed his upper endo and colonoscopy) for further recs and possible procedure -Fluids increased --> LR at 150cc/hr -morphine PRN -zofran PRN -lipid panel and A1c -Lipase 3901 --> 2264 -CEA WNL -TG 214 - Elevated, but not likely cause of pancreatitis -A1C 5.7 -Diet advanced today from clear liquids to GI soft, however patient did not tolerate the solid diet. Diet changed back to clears and will reassess tomorrow and advance as tolerated. -GI has signed off. Patient cleared for discharge per GI once he is tolerating diet. CAD s/p 3 stents -last stent 2003 -Plavix held, in case of EGD with Bx HTN -Home meds held -monitor bp and resume meds as needed Hypothyroid -continue with home synthroid 100 mcg DVT ppx: lovenox 40 mg sq GI ppx: protonix 40 mg IV Code: FULL case discussed with Dr. Feliciano Gallagher, PGY-1
[2018-04-12] MEDS: Lactated Ringer's 1,000 ML IV SCH ×3 (00:05→14:40)
[2018-04-12] MEDS: Levothyroxine 100 MCG TAB PO SCH (06:22)
[2018-04-12 07:00] LABS: ALBUMIN 3.3 g/dL (3.5-5.0); ALT/SGPT 27 U/L (21-72); AST/SGOT 19 U/L (17-59); BLOOD UREA NITROGEN 11 mg/dL (9-20); CALCIUM 8.9 mg/dl (8.6-10.4); GFR NON-AFRICAN AMERICAN > 60
[2018-04-12 07:55] VITALS: O2SAT 97
[2018-04-12] MEDS ORDERED: Pneumococcal 23-Valent Vaccine IM ONE (10:00)
[2018-04-12] MEDS: Influenza Vaccine 60 MCG/0.5 ML SYR (3 yr & up) IM ONE ×2 (10:46→10:55)
[2018-04-12] MEDS: Enoxaparin 40 mg Syringe SC SCH (10:47)
[2018-04-12 12:10] LABS: BASO # 0.1 K/uL (0.0-0.2); BASO % 0.6 % (0.0-2.0); EOS # 0.4 K/uL (0.0-0.7); EOS % 4.1 % (0.0-4.0); LYMPH # 1.6 K/uL (1.0-4.3); LYMPH % 18.5 % (20.0-40.0); MEAN CELL VOLUME 86.1 fL (80.0-94.0); MEAN CORPUSCULAR HEMOGLOBIN 30.6 pg (27.0-31.0); MEAN CORPUSCULAR HGB CONC 35.5 g/dL (33.0-37.0); MEAN PLATELET VOLUME 8.5 fL (7.2-11.7); MONO % 11.4 % (0.0-10.0); NEUT # 5.6 K/uL (1.8-7.0); NEUT % 65.4 % (50.0-75.0); RBC 4.15 Mil/uL (4.40-5.90); RED CELL DISTRIBUTION WIDTH 13.8 % (11.5-14.5); WHITE BLOOD COUNT 8.6 K/uL (4.8-10.8)
[2018-04-12 12:12] LABS: HEMOGLOBIN 12.7 g/dL (12.0-18.0)
[2018-04-12] MEDS ORDERED: Potassium Chloride 20 mEq ER Tab PO STA (14:40)
--- NOTE | 2018-04-12 16:11 | CP.PCM.DIS ---
<Aman Gallagher - Last Filed: 04/12/18 16:09> Provider - Provider Date of Admission: 04/09/18 13:45 Attending physician: Caren Wiggins MD Time Spent in preparation of Discharge (in minutes): 45 Diagnosis - Discharge Diagnosis (1) Pancreatitis Status: Acute Hospital Course - Lab Results Lab Results: Most Recent Lab Values WBC 8.6 K/uL (4.8-10.8) 04/12/18 11:59 RBC 4.15 Mil/uL (4.40-5.90) L 04/12/18 11:59 Hgb 12.7 g/dL (12.0-18.0) D 04/12/18 11:59 Hct 35.8 % (35.0-51.0) 04/12/18 11:59 MCV 86.1 fL (80.0-94.0) 04/12/18 11:59 MCH 30.6 pg (27.0-31.0) 04/12/18 11:59 MCHC 35.5 g/dL (33.0-37.0) 04/12/18 11:59 RDW 13.8 % (11.5-14.5) 04/12/18 11:59 Plt Count 278 K/uL (130-400) 04/12/18 11:59 MPV 8.5 fL (7.2-11.7) 04/12/18 11:59 Neut % (Auto) 65.4 % (50.0-75.0) 04/12/18 11:59 Lymph % (Auto) 18.5 % (20.0-40.0) L 04/12/18 11:59 Banks % (Auto) 11.4 % (0.0-10.0) H 04/12/18 11:59 Eos % (Auto) 4.1 % (0.0-4.0) H 04/12/18 11:59 Baso % (Auto) 0.6 % (0.0-2.0) 04/12/18 11:59 Neut # (Auto) 5.6 K/uL (1.8-7.0) 04/12/18 11:59 Lymph # (Auto) 1.6 K/uL (1.0-4.3) 04/12/18 11:59 Banks # (Auto) 1.0 K/uL (0.0-0.8) H 04/12/18 11:59 Eos # (Auto) 0.4 K/uL (0.0-0.7) 04/12/18 11:59 Baso # (Auto) 0.1 K/uL (0.0-0.2) 04/12/18 11:59 PT 12.6 SECONDS (9.7-12.2) H 04/10/18 09:37 INR 1.2 04/10/18 09:37 pO2 19 mm/Hg (30-55) L 04/09/18 11:20 VBG pH 7.34 (7.32-7.43) 04/09/18 11:20 VBG pCO2 51 mmHg (40-60) 04/09/18 11:20 VBG HCO3 23.7 mmol/L 04/09/18 11:20 VBG Total CO2 29.1 mmol/L (22-28) H 04/09/18 11:20 VBG O2 Sat (Calc) 28.7 % (40-65) L 04/09/18 11:20 VBG Base Excess 0.9 mmol/L (0.0-2.0) 04/09/18 11:20 VBG Potassium 3.3 mmol/L (3.6-5.2) L 04/09/18 11:20 Sodium 138.0 mmol/l (132-148) 04/09/18 11:20 Chloride 106.0 mmol/L (98-107) 04/09/18 11:20 Glucose 152 mg/dl (75-110) H 04/09/18 11:20 Lactate 1.6 mmol/L (0.7-2.1) 04/09/18 11:20 Sodium 140 mmol/L (132-148) 04/12/18 06:31 Potassium 3.3 mmol/L (3.6-5.2) L 04/12/18 06:31 Chloride 106 mmol/L (98-107) 04/12/18 06:31 Carbon Dioxide 23 mmol/L (22-30) 04/12/18 06:31 Anion Gap 14 (10-20) 04/12/18 06:31 BUN 11 mg/dL (9-20) 04/12/18 06:31 Creatinine 0.8 mg/dL (0.8-1.5) 04/12/18 06:31 Est GFR ( Amer) > 60 04/12/18 06:31 Est GFR (Non-Af Amer) > 60 04/12/18 06:31 Random Glucose 103 mg/dL (75-110) 04/12/18 06:31 Hemoglobin A1c 5.7 % (4.2-6.5) 04/10/18 09:37 Calcium 8.9 mg/dl (8.6-10.4) 04/12/18 06:31 Phosphorus 2.4 mg/dL (2.5-4.5) L 04/10/18 09:37 Magnesium 1.9 mg/dL (1.6-2.3) 04/10/18 09:37 Total Bilirubin 0.9 mg/dL (0.2-1.3) 04/12/18 06:31 AST 19 U/L (17-59) 04/12/18 06:31 ALT 27 U/L (21-72) 04/12/18 06:31 Alkaline Phosphatase 37 U/L (38-126) L 04/12/18 06:31 Total Protein 6.4 g/dL (6.3-8.3) 04/12/18 06:31 Albumin 3.3 g/dL (3.5-5.0) L 04/12/18 06:31 Globulin 3.1 gm/dL (2.2-3.9) 04/12/18 06:31 Albumin/Globulin Ratio 1.0 (1.0-2.1) 04/12/18 06:31 Triglycerides 214 mg/dL (0-149) H 04/11/18 06:48 Cholesterol 142 mg/dL (0-199) 04/11/18 06:48 LDL Cholesterol Direct 97 mg/dL (0-129) 04/11/18 06:48 HDL Cholesterol 28 mg/dL (30-70) L 04/11/18 06:48 Lipase 2264 U/L (23-300) H 04/11/18 06:48 Carcinoembryonic Ag 0.8 ng/mL (0-3.0) 04/10/18 09:37 Venous Blood Potassium 3.3 mmol/L (3.6-5.2) L 04/09/18 11:20 Urine Color Yellow (YELLOW) 04/09/18 12:40 Urine Clarity Clear (Clear) 04/09/18 12:40 Urine pH 6.0 (5.0-8.0) 04/09/18 12:40 Ur Specific [place] 1.013 (1.003-1.030) 04/09/18 12:40 Urine Protein 1+ mg/dL (NEGATIVE) H 04/09/18 12:40 Urine Glucose (UA) Normal mg/dL (Normal) 04/09/18 12:40 Urine Ketones Negative mg/dL (NEGATIVE) 04/09/18 12:40 Urine Blood Negative (NEGATIVE) 04/09/18 12:40 Urine Nitrate Negative (NEGATIVE) 04/09/18 12:40 Urine Bilirubin Negative (NEGATIVE) 04/09/18 12:40 Urine Urobilinogen Normal mg/dL (0.2-1.0) 04/09/18 12:40 Ur Leukocyte Esterase Neg Ligia/uL (Negative) 04/09/18 12:40 Urine WBC (Auto) < 1 /hpf (0-5) 04/09/18 12:40 Urine RBC (Auto) < 1 /hpf (0-3) 04/09/18 12:40 Hyaline Casts 3-5 /lpf (0-2) H 04/09/18 12:40 - Hospital Course Hospital Course: Initial HPI: HPI: 77 y/o male with PMHx of CAD s/p 3 stents (last 2003), HTN, HLD presents to the ED with epigastric, nonradiating abdominal pain x 15 days. Patient states it was at its worst starting today so he went to the ED. He started to feel nauseous today and vomited his breakfast once in the ED. For the last 15 days, patient has been trying to drink tea to relieve his pain without relief. He has not tried any medications for pain relief. The pain currently is 5/10 while resting supine in bed but can be more worse when he is ambulating. Patient endorses appetite loss but denies weight loss. Patient also denies chest pain, shortness of breath, fever, chills, sweats, diarrhea. Patient has also been having constipation and last BM was hard stool this morning. Of note, patient's PCM is Dr. Jose Antonio Gibson. The last time he saw him was last summer. He said the appointment went well. He had a screening colonoscopy done a year ago. Patient states there were no significant findings. ROS: as per HPI PMHx: CAD - 3 stents last one in 2003 HTN Hypothyroid Hyperlipidemia herniated lumbar discs PSHx: CAD with 3 stents last one 2003 cholecystectomy in [facility] 2012 Procedures: Upper endoscopy and colonoscopy 2016 - EMR records says he has gastritis and diverticulosis. FHx: Denies FHx of CA, CVA, DC SocHx: Denies tobacco, EtOH and drug use Home Meds: levothyroxine 100 mcg metoprolol succinate 25 mg plavix 75 mg fenofibrate 160 mg amlodipine 10 mg losartan/HCTZ 100/25 tramadol 50mg a pill for acid reflux - does not recall the name; left it at home Allergies: [facility] Hospital Course: Patient was admitted with initial Lipase of [address] abd/pelvis indicating acute pancreatitis. Patient is s/p cholecystectomy in the past. GI was consulted and recommended supportive care with IV fluids and gentle diet advancement as tolerated. Cause of pancreatitis was uncertain as labs did not reflect an obstructive pattern, triglycerides were elevated but not to the level of causing pancreatitis, and patient denied significant alcohol use. Cause suspected drug-induced (HCTZ/PPI), vs possible autoimmune pancreatitis. Fluids were continued and diet was advanced to clear liquids on 04/10. GI signed off on 04/10 stating that patient cleared for discharge once tolerating diet. Diet was advanced to solid low fat low fiber diet on 04/11 with plans to discharge if patient tolerated. However at this time patient began to experience recurring of symptoms and diet was changed back to clears. Diet was re-advanced to low fat low carb diet on 04/12 and patient was discharged with plans to follow up with primary care. 77 y/o male with PMHx of CAD s/p 3 stents (last 2003), HTN, HLD presents to the ED with epigastric, nonradiating abdominal pain x 15 days. In the ED found to have elevated lipase 3901. Admitted for acute pancreatitis. Imaging: -CT Abdomen/Pelvis 04/09/2018: 1) Findings most compatible with subacute pancreatitis. Prior cholecystectomy is appreciated with likely related dilatation of the proximal to mid common bile duct up to 8 mm. No radiodense choledocholithiasis. Consider follow-up MRCP as clinically warranted as a precaution to evaluate common bile duct diameter. 2) Hepatic steatosis. No intrahepatic biliary dilatation. 3) Small left renal cyst identified. 4) Enlarged prostate gland. -Chest X-ray 04/09/2018: No acute cardiopulmonary disease identified. Discharge Exam - Head Exam Head Exam: ATRAUMATIC, NORMAL INSPECTION - Eye Exam Eye Exam: EOMI, Normal appearance - ENT Exam ENT Exam: Mucous Membranes Moist - Neck Exam Neck exam: Full Rom - Respiratory Exam Respiratory Exam: Clear to PA & Lateral, NORMAL BREATHING PATTERN, UNREMARKABLE - Cardiovascular Exam Cardiovascular Exam: REGULAR RHYTHM, RRR, +S1, +S2. absent: Systolic Murmur - GI/Abdominal Exam GI & Abdominal Exam: Normal Bowel Sounds, Soft, Unremarkable. absent: Distended, Firm, Rigid, Tenderness - Extremities Exam Extremities exam: normal inspection - Neurological Exam Neurological exam: Alert, CN II-XII Intact, Oriented x3 - Psychiatric Exam Psychiatric exam: Normal Affect, Normal Mood - Skin Skin Exam: Dry, Normal Color, Warm Discharge Plan - Follow Up Plan Condition: SERIOUS Disposition: HOME/ ROUTINE Instructions: Pancreatitis (DC) Additional Instructions: Patient is cleared for discharge per Dr. Sierra Patient is to advance his diet only as tolerated. To help control the pain associated with your pancreatitis, please start by eating soft foods that are low in fat and fiber. Soups, breads, lean meats, etc are foods that will cause less irritation to your stomach. As you begin feel better, you may continue to introduce foods back into your diet that you would normally eat. Please discontinue the following medications for now, until following up with your PMD, Dr. Gibson. -Losartan/HCTZ -Protonix It is possible that one or both of these medications contributed to your pancreatitis, so please hold them until you follow with Dr. Gibson. Please continue the following medications: Fenofibrate 160mg one tab by mouth daily at 8am Synthroid .05 mg one tab by mouth daily at 8am Amlodipine 10 mg one tab by mouth daily at 8am Metoprolol 25 mg one tab by mouth daily at 8am Tramadol 50 mg one tab by mouth daily at 8am Please follow up with your PMD, Dr. Gibson, in 2-3 days. Please return to ER if symptoms recur or worsen. <Abisai Sierra - Last Filed: 04/12/18 19:23> Provider - Provider Date of Admission: 04/09/18 13:45 Attending physician: Caren Wiggins MD Hospital Course - Lab Results Lab Results: Most Recent Lab Values WBC 8.6 K/uL (4.8-10.8) 04/12/18 11:59 RBC 4.15 Mil/uL (4.40-5.90) L 04/12/18 11:59 Hgb 12.7 g/dL (12.0-18.0) D 04/12/18 11:59 Hct 35.8 % (35.0-51.0) 04/12/18 11:59 MCV 86.1 fL (80.0-94.0) 04/12/18 11:59 MCH 30.6 pg (27.0-31.0) 04/12/18 11:59 MCHC 35.5 g/dL (33.0-37.0) 04/12/18 11:59 RDW 13.8 % (11.5-14.5) 04/12/18 11:59 Plt Count 278 K/uL (130-400) 04/12/18 11:59 MPV 8.5 fL (7.2-11.7) 04/12/18 11:59 Neut % (Auto) 65.4 % (50.0-75.0) 04/12/18 11:59 Lymph % (Auto) 18.5 % (20.0-40.0) L 04/12/18 11:59 Banks % (Auto) 11.4 % (0.0-10.0) H 04/12/18 11:59 Eos % (Auto) 4.1 % (0.0-4.0) H 04/12/18 11:59 Baso % (Auto) 0.6 % (0.0-2.0) 04/12/18 11:59 Neut # (Auto) 5.6 K/uL (1.8-7.0) 04/12/18 11:59 Lymph # (Auto) 1.6 K/uL (1.0-4.3) 04/12/18 11:59 Banks # (Auto) 1.0 K/uL (0.0-0.8) H 04/12/18 11:59 Eos # (Auto) 0.4 K/uL (0.0-0.7) 04/12/18 11:59 Baso # (Auto) 0.1 K/uL (0.0-0.2) 04/12/18 11:59 PT 12.6 SECONDS (9.7-12.2) H 04/10/18 09:37 INR 1.2 04/10/18 09:37 pO2 19 mm/Hg (30-55) L 04/09/18 11:20 VBG pH 7.34 (7.32-7.43) 04/09/18 11:20 VBG pCO2 51 mmHg (40-60) 04/09/18 11:20 VBG HCO3 23.7 mmol/L 04/09/18 11:20 VBG Total CO2 29.1 mmol/L (22-28) H 04/09/18 11:20 VBG O2 Sat (Calc) 28.7 % (40-65) L 04/09/18 11:20 VBG Base Excess 0.9 mmol/L (0.0-2.0) 04/09/18 11:20 VBG Potassium 3.3 mmol/L (3.6-5.2) L 04/09/18 11:20 Sodium 138.0 mmol/l (132-148) 04/09/18 11:20 Chloride 106.0 mmol/L (98-107) 04/09/18 11:20 Glucose 152 mg/dl (75-110) H 04/09/18 11:20 Lactate 1.6 mmol/L (0.7-2.1) 04/09/18 11:20 Sodium 140 mmol/L (132-148) 04/12/18 06:31 Potassium 3.3 mmol/L (3.6-5.2) L 04/12/18 06:31 Chloride 106 mmol/L (98-107) 04/12/18 06:31 Carbon Dioxide 23 mmol/L (22-30) 04/12/18 06:31 Anion Gap 14 (10-20) 04/12/18 06:31 BUN 11 mg/dL (9-20) 04/12/18 06:31 Creatinine 0.8 mg/dL (0.8-1.5) 04/12/18 06:31 Est GFR ( Amer) > 60 04/12/18 06:31 Est GFR (Non-Af Amer) > 60 04/12/18 06:31 Random Glucose 103 mg/dL (75-110) 04/12/18 06:31 Hemoglobin A1c 5.7 % (4.2-6.5) 04/10/18 09:37 Calcium 8.9 mg/dl (8.6-10.4) 04/12/18 06:31 Phosphorus 2.4 mg/dL (2.5-4.5) L 04/10/18 09:37 Magnesium 1.9 mg/dL (1.6-2.3) 04/10/18 09:37 Total Bilirubin 0.9 mg/dL (0.2-1.3) 04/12/18 06:31 AST 19 U/L (17-59) 04/12/18 06:31 ALT 27 U/L (21-72) 04/12/18 06:31 Alkaline Phosphatase 37 U/L (38-126) L 04/12/18 06:31 Total Protein 6.4 g/dL (6.3-8.3) 04/12/18 06:31 Albumin 3.3 g/dL (3.5-5.0) L 04/12/18 06:31 Globulin 3.1 gm/dL (2.2-3.9) 04/12/18 06:31 Albumin/Globulin Ratio 1.0 (1.0-2.1) 04/12/18 06:31 Triglycerides 214 mg/dL (0-149) H 04/11/18 06:48 Cholesterol 142 mg/dL (0-199) 04/11/18 06:48 LDL Cholesterol Direct 97 mg/dL (0-129) 04/11/18 06:48 HDL Cholesterol 28 mg/dL (30-70) L 04/11/18 06:48 Lipase 2264 U/L (23-300) H 04/11/18 06:48 Carcinoembryonic Ag 0.8 ng/mL (0-3.0) 04/10/18 09:37 Venous Blood Potassium 3.3 mmol/L (3.6-5.2) L 04/09/18 11:20 Urine Color Yellow (YELLOW) 04/09/18 12:40 Urine Clarity Clear (Clear) 04/09/18 12:40 Urine pH 6.0 (5.0-8.0) 04/09/18 12:40 Ur Specific [place] 1.013 (1.003-1.030) 04/09/18 12:40 Urine Protein 1+ mg/dL (NEGATIVE) H 04/09/18 12:40 Urine Glucose (UA) Normal mg/dL (Normal) 04/09/18 12:40 Urine Ketones Negative mg/dL (NEGATIVE) 04/09/18 12:40 Urine Blood Negative (NEGATIVE) 04/09/18 12:40 Urine Nitrate Negative (NEGATIVE) 04/09/18 12:40 Urine Bilirubin Negative (NEGATIVE) 04/09/18 12:40 Urine Urobilinogen Normal mg/dL (0.2-1.0) 04/09/18 12:40 Ur Leukocyte Esterase Neg Ligia/uL (Negative) 04/09/18 12:40 Urine WBC (Auto) < 1 /hpf (0-5) 04/09/18 12:40 Urine RBC (Auto) < 1 /hpf (0-3) 04/09/18 12:40 Hyaline Casts 3-5 /lpf (0-2) H 04/09/18 12:40 Attending/Attestation - Attestation I have personally seen and examined this patient.: Yes I have fully participated in the care of the patient.: Yes I have reviewed all pertinent clinical information, including history, physical exam and plan: Yes Notes (Text): 04/12/18 19:19 Medical attending: Patient was seen and examined by me. Agree with the above note by the resident The patient was not in any acute distress - he tolerated the regular diet fine today. He denied nausea, denied vomiting, denied abdominal pain at rest and did not have abdominal pain during examination. We explained to the patient that he needs to hold on certain medications that may cause the pancreatitis. Patient LFTs, T billirubin levels have been stable as well. Abisai Sierra
[2018-04-12 16:21] VITALS: BP 164/77; PULSE 67; TEMP 98.1
== END 2018-04-12 18:50 | disposition home or self-care (01) | DRG 440 ==
LOC: C.ER 10:43 → C.9E 13:45 → C.3T 14:14
PROVIDERS: ADMIT Internal Medicine; ATTEND Internal Medicine
DX: K85.90 Acute pancreatitis without necrosis or infection, unspecified (principal); N28.1 Cyst of kidney, acquired; K76.0 Fatty (change of) liver, not elsewhere classified; E03.9 Hypothyroidism, unspecified; I10 Essential (primary) hypertension; K21.9 Gastro-esophageal reflux disease without esophagitis; I25.10 Atherosclerotic heart disease of native coronary artery without angina pectoris; J45.909 Unspecified asthma, uncomplicated; N40.0 Benign prostatic hyperplasia without lower urinary tract symptoms; K59.00 Constipation, unspecified; R74.8 Abnormal levels of other serum enzymes; E78.5 Hyperlipidemia, unspecified; E78.00 Pure hypercholesterolemia, unspecified; Z95.5 Presence of coronary angioplasty implant and graft; Z90.49 Acquired absence of other specified parts of digestive tract